=== PATIENT | female | born 1970 | race Caucasian/White ===

== ENCOUNTER → 2017-07-02 | Outpatient (CLI) | payer OTHER ==
--- NOTE | 2017-07-02 16:57 | MR ---
EXAMINATION TYPE: MR brain wo/w con DATE OF EXAM: 07/02/2017 COMPARISON: NONE HISTORY: Disorder of facial nerve / Headache CONTRAST: Performed utilizing 7 mL intravenous Gadavist gadolinium contrast. TECHNIQUE: Multiplanar, multiecho imaging on a 3.0 Samara magnet is performed through the brain. Stud y is performed within 24 hours of arrival to the hospital. The craniovertebral junction is normal. The pituitary is normal. Diffusion-weighted imaging is performed. No abnormal hyperintensity is present to suggest an acute i ntracranial infarct or acute ischemic change. There are scattered punctate areas of hyperintensity on T2 and Inversion Recovery weighted sequences which are non-specific but can be related to microvascular ischemic changes. Ventricles and sulci are appropriate for the patient age. There is opacification of the bilateral maxillary sinuses. Mild mucosal thickening is within a chief radiation therapist ior left ethmoid air cell. No abnormal enhancement is evident. IMPRESSIONS: 1. Normal pre and postcontrast MRI brain 2. Mucosal thickening within maxillary sinuses. Correlate clinically
== END | disposition home or self-care (01) ==
LOC: RADMRIMAIN 13:17
PROVIDERS: ATTEND Psychiatry & Neurology Neurology
DX: R51 Headache (principal); G51.9 Disorder of facial nerve, unspecified
CPT/HCPCS: 70553; A9581

== ENCOUNTER 2017-07-22 16:22 | Emergency (ER) | payer OTHER ==
[2017-07-22] MEDS ORDERED: SODIUM CHLORIDE 0.9% 1,000 ML IV STA (17:18)
[2017-07-22] MEDS ORDERED: ONDANSETRON 4 MG/2 ML VIAL IVP STA (17:18)
[2017-07-22] MEDS ORDERED: PANTOPRAZOLE 40 MG/10 ML VIAL IVP STA (17:18)
--- NOTE | 2017-07-22 17:27 | ED ---
General Adult HPI - General Chief complaint: Abdominal Pain Stated complaint: ABDOMINAL PAIN Source: patient, family, RN notes reviewed Mode of arrival: ambulatory Limitations: no limitations - History of Present Illness Initial comments: Chief complaint and history of present illness is a 46-year-old female here with her . The patient is descent and is able to understand [place] better than she can speak but her does a good job of translating. Patient started having abdominal discomfort and nausea at 4 AM vomited twice since then. Decreased appetite since then. No radiation of pain. No prior blood in the vomit or stool. No known sick in the house. Denies the likelihood of food poisoning. No direct injuries. Is happened one time before the last short while and went away. reports that she had a full workup including endoscopy which did not have any apparent problems no ulcers and wasn't treated for one. - Related Data Previous Rx's Medication Instructions Recorded Ciprofloxacin HCl [Cipro] 500 mg PO Q12HR #14 tablet 07/22/17 Famotidine [Pepcid] 20 mg PO DAILY #30 tablet 07/22/17 Allergies Allergy/AdvReac Type Severity Reaction Status Date / Time No Known Allergies Allergy Verified 07/22/17 16:43 Review of Systems ROS Statement: Those systems with pertinent positive or pertinent negative responses have been documented in the HPI. Review of systems. No complaint of headache or visual acuity changes no complaint of shortness breath or chest pain. She complains of discomfort to the epigastric region. Increased with palpation of the area. Nausea vomited twice. No change in bowel habits. No trouble urinating. All systems are reviewed. No significant past medical problems other have been having had a full workup for similar problem a year or more ago including EGD which was negative. She is not currently on any medications. She has no surgical history. Family history noncontributory. No known ALLERGIES. ROS Other: All systems not noted in ROS Statement are negative. Past Medical History Past Medical History: No Reported History History of Any Multi-Drug Resistant Organisms: None Reported Past Surgical History: No Surgical Hx Reported Past Psychological History: No Psychological Hx Reported Smoking Status: Never smoker Past Alcohol Use History: None Reported Past Drug Use History: None Reported General Exam - General Exam Comments Initial Comments: General: The patient is awake and alert, here with a complaint of epigastric pain since 4 AM. Nausea vomiting 2. Decreased appetite. Vital signs temperature 98.8 pulse 80 respiratory rate 18 pulse ox 96 on room air blood pressure 91/58 Eye: Pupils are equal, round and reactive to light, extra-ocular movements are intact ; there is normal conjunctiva bilaterally. No signs of icterus. Ears, nose, mouth and throat: There are moist mucous membranes and no oral lesions. Neck: The neck is supple, there is no tenderness, no anterior cervical lymphadenopathy , thyroid not enlarged. Cardiovascular: There is a regular rate and rhythm. No murmur, rub or gallop is appreciated. Respiratory: Lungs are clear to auscultation, respirations are non-labored, breath sounds are equal. No wheezes, stridor, rales, or rhonchi. Gastrointestinal: Mild tenderness with deep palpation from the left upper quadrant to the epigastric region. No organomegaly appreciated. Normoactive bowel sounds. Minimal rebound and referred pain. Back: There is no tenderness to palpation in the midline. There is no obvious deformity. No rashes noted. Musculoskeletal: Normal ROM, no tenderness, There is no pedal edema. There is no calf tenderness or swelling. Neurological: No complaint of numbness, tingling or difficulty walking. Alert and oriented. Able to understand the questions in [place] and what she could not understand her translated. Skin: Skin is warm and dry and no rashes or lesions are noted. Limitations: no limitations Course Vital Signs 07/22/17 16:36 Temperature 98.8 F Pulse Rate 80 Respiratory 18 Rate Blood Pressure 91/58 O2 Sat by Pulse 96 Oximetry Medical Decision Making - Medical Decision Making Medical decision making; this is a 46-year-old female here with her . The patient had some epigastric discomfort and vomited twice today. Patient's labs show a white count of 10 hemoglobin 13 hematocrit 39. Urine shows 48 reds 26 whites. Large leuk esterase. No fever no chills no flank pain. BUN 17 creatinine 0.5 GFR greater than 60. Glucose 100. X-rays of the abdomen done and reviewed by radiologist his impression is overlying artifact on one of the images. Lung bases are clear. There is no bowel obstruction or pneumoperitoneum. Bone mineralization is normal. Probable vascular calcifications are present within the pelvis. Impression nonobstructive bowel gas pattern. Correlate for enteritis. I reinterviewed the patient reports her stomach feeling better at this time. We did discuss possibility tract infection and enteritis. The patient be placed on Pepcid 20 mg daily for the next 4 weeks as well as Cipro 500 twice a day for 5 days. Told to follow-up with family physician return emergency room as needed. - Lab Data Result diagrams: 07/22/17 17:28 07/22/17 17:28 Lab Results 07/22/17 07/22/17 07/22/17 Range/Units 17:28 17:28 17:28 WBC 10.7 H (3.8-10.6) k/uL RBC 4.68 (3.80-5.40) m/uL Hgb 13.4 (11.4-16.0) gm/dL Hct 39.0 (34.0-46.0) % MCV 83.5 (80.0-100.0) fL MCH 28.8 (25.0-35.0) pg MCHC 34.5 (31.0-37.0) g/dL RDW 12.3 (11.5-15.5) % Plt Count 287 (150-450) k/uL Neutrophils % 83 % Lymphocytes % 10 % Monocytes % 4 % Eosinophils % 2 % Basophils % 0 % Neutrophils # 8.9 H (1.3-7.7) k/uL Lymphocytes # 1.0 (1.0-4.8) k/uL Monocytes # 0.4 (0-1.0) k/uL Eosinophils # 0.2 (0-0.7) k/uL Basophils # 0.0 (0-0.2) k/uL Sodium 140 (137-145) mmol/L Potassium 4.0 (3.5-5.1) mmol/L Chloride 104 (98-107) mmol/L Carbon Dioxide 25 (22-30) mmol/L Anion Gap 11 mmol/L BUN 17 (7-17) mg/dL Creatinine 0.50 L (0.52-1.04) mg/dL Est GFR (CKD-EPI)AfAm >90 (>60 ml/min/1.73 sqM) Est GFR (CKD-EPI)NonAf >90 (>60 ml/min/1.73 sqM) Glucose 100 H (74-99) mg/dL Plasma Lactic Acid Mannie (0.7-2.0) mmol/L Calcium 9.5 (8.4-10.2) mg/dL Total Bilirubin 1.1 (0.2-1.3) mg/dL AST 23 (14-36) U/L ALT 24 (9-52) U/L Alkaline Phosphatase 86 (38-126) U/L Total Protein 7.4 (6.3-8.2) g/dL Albumin 4.3 (3.5-5.0) g/dL Amylase 67 (30-110) U/L Lipase 68 (23-300) U/L Urine Color Urine Appearance (Clear) Urine pH (5.0-8.0) Ur Specific [place] (1.001-1.035) Urine Protein (Negative) Urine Glucose (UA) (Negative) Urine Ketones (Negative) Urine Blood (Negative) Urine Nitrite (Negative) Urine Bilirubin (Negative) Urine Urobilinogen (<2.0) mg/dL Ur Leukocyte Esterase (Negative) Urine RBC (0-5) /hpf Urine WBC (0-5) /hpf Ur Squamous Epith Cells (0-4) /hpf Urine Bacteria (None) /hpf Urine Mucus (None) /hpf Urine HCG, Qual Not Detected (Not Detectd) 07/22/17 07/22/17 Range/Units 17:28 17:28 WBC (3.8-10.6) k/uL RBC (3.80-5.40) m/uL Hgb (11.4-16.0) gm/dL Hct (34.0-46.0) % MCV (80.0-100.0) fL MCH (25.0-35.0) pg MCHC (31.0-37.0) g/dL RDW (11.5-15.5) % Plt Count (150-450) k/uL Neutrophils % % Lymphocytes % % Monocytes % % Eosinophils % % Basophils % % Neutrophils # (1.3-7.7) k/uL Lymphocytes # (1.0-4.8) k/uL Monocytes # (0-1.0) k/uL Eosinophils # (0-0.7) k/uL Basophils # (0-0.2) k/uL Sodium (137-145) mmol/L Potassium (3.5-5.1) mmol/L Chloride (98-107) mmol/L Carbon Dioxide (22-30) mmol/L Anion Gap mmol/L BUN (7-17) mg/dL Creatinine (0.52-1.04) mg/dL Est GFR (CKD-EPI)AfAm (>60 ml/min/1.73 sqM) Est GFR (CKD-EPI)NonAf (>60 ml/min/1.73 sqM) Glucose (74-99) mg/dL Plasma Lactic Acid Mannie 1.3 (0.7-2.0) mmol/L Calcium (8.4-10.2) mg/dL Total Bilirubin (0.2-1.3) mg/dL AST (14-36) U/L ALT (9-52) U/L Alkaline Phosphatase (38-126) U/L Total Protein (6.3-8.2) g/dL Albumin (3.5-5.0) g/dL Amylase (30-110) U/L Lipase (23-300) U/L Urine Color Yellow Urine Appearance Cloudy H (Clear) Urine pH 6.0 (5.0-8.0) Ur Specific [place] 1.021 (1.001-1.035) Urine Protein Trace H (Negative) Urine Glucose (UA) Negative (Negative) Urine Ketones Negative (Negative) Urine Blood Moderate H (Negative) Urine Nitrite Negative (Negative) Urine Bilirubin Negative (Negative) Urine Urobilinogen <2.0 (<2.0) mg/dL Ur Leukocyte Esterase Large H (Negative) Urine RBC 48 H (0-5) /hpf Urine WBC 26 H (0-5) /hpf Ur Squamous Epith Cells 5 H (0-4) /hpf Urine Bacteria Rare H (None) /hpf Urine Mucus Occasional H (None) /hpf Urine HCG, Qual (Not Detectd) Disposition Clinical Impression: Gastritis, UTI (urinary tract infection) Disposition: HOME SELF-CARE Condition: Fair Instructions: Gastritis (ED), Urinary Tract Infection in Women (ED) Additional Instructions: Increase fluids, take Cipro 1 tablet twice day for 5 days. Take Pepcid 1 tablet daily. Follow-up with family physician or return emergency room as needed Prescriptions: Ciprofloxacin HCl [Cipro] 500 mg PO Q12HR #14 tablet Famotidine [Pepcid] 20 mg PO DAILY #30 tablet Referrals: Kb Koenig MD [Primary Care Provider] - 1-2 days Time of Disposition: 18:59
[2017-07-22 17:42] LABS: Basophils % (A) 0 %; Eosinophils # (A) 0.2 k/uL (0-0.7); Eosinophils % (A) 2 %; HGB 13.4 gm/dL (11.4-16.0); Lymphocytes % (A) 10 %; MCH 28.8 pg (25.0-35.0); MCHC 34.5 g/dL (31.0-37.0); MCV 83.5 fL (80.0-100.0); Mean Platelet Volume 7.6; Monocytes # (A) 0.4 k/uL (0-1.0); Monocytes % (A) 4 %; Neutrophils # (A) 8.9 k/uL (1.3-7.7); Neutrophils % (A) 83 %; Platelet Count 287 k/uL (150-450); RBC 4.68 m/uL (3.80-5.40); RDW 12.3 % (11.5-15.5); WBC 10.7 k/uL (3.8-10.6)
[2017-07-22 17:46] LABS: Appearance,Urine Cloudy (Clear); Bacteria,Urine Rare /hpf; Bilirubin,Urine Negative (Negative); Blood,Urine Moderate (Negative); Color,Urine Yellow; Glucose,Urine (UA) Negative (Negative); Ketones,Urine Negative (Negative); Leukocyte Esterase,Urine Large (Negative); Mucus,Urine Occasional /hpf; Protein,Urine Trace (Negative); RBC,Urine 48 /hpf (0-5); Specific Gravity,Urine 1.021 (1.001-1.035); Squamous Epithelial Cell,Urine 5 /hpf (0-4); Urobilinogen,Urine <2.0 mg/dL (<2.0); WBC,Urine 26 /hpf (0-5)
[2017-07-22 18:06] LABS: ALT 24 U/L (9-52); AST 23 U/L (14-36); Albumin 4.3 g/dL (3.5-5.0); Alkaline Phosphatase 86 U/L (38-126); Amylase 67 U/L (30-110); Anion Gap 11 mmol/L; Blood Urea Nitrogen 17 mg/dL (7-17); Calcium 9.5 mg/dL (8.4-10.2); Carbon Dioxide 25 mmol/L (22-30); Chloride 104 mmol/L (98-107); Glucose 100 mg/dL (74-99); Lipase 68 U/L (23-300); Sodium 140 mmol/L (137-145); Total Bilirubin 1.1 mg/dL (0.2-1.3); Total Protein 7.4 g/dL (6.3-8.2)
--- NOTE | 2017-07-22 18:16 | XR ---
2 view abdomen HISTORY: Epigastric pain with nausea and vomiting 2 views of the abdomen submitted on 3 images Overlying artifact on one of the images. Lung bases are clear. There is no bowel obstruction or pneum operitoneum. Bone mineralization is normal. Probable vascular calcifications present within the pelvi s. IMPRESSION: Nonobstructive bowel gas pattern. Correlate for enteritis.
[2017-07-22] MEDS ORDERED: CIPROFLOXACIN HCL 500 MG TAB PO STA (18:57)
[2017-07-22 19:15] VITALS: BP 118/59; PULSE 78; RESP 16; TEMP 98.1
== END 2017-07-22 19:15 | disposition home or self-care (01) ==
LOC: EC 16:22
DX: K29.70 Gastritis, unspecified, without bleeding (principal); N39.0 Urinary tract infection, site not specified
CPT/HCPCS: 36415; 80053; 82150; 83605; 83690; 85025; 81001; 81025; 87086; 74019; 99284; 96374; 96375; 96361; J2405; C9113